=== PATIENT | male | born 1985 | race Caucasian/White ===

== ENCOUNTER 2020-11-24 08:30 | Emergency (ER) | payer SELFPAY ==
[2020-11-24 08:44] VITALS: BP 142/75; PULSE 91; RESP 16; TEMP 37.1; O2SAT 100
--- NOTE | 2020-11-24 08:51 | ED.EAR ---
HPI - Ear Problem General Chief complaint: Ear Stated complaint: ear pain Time Seen by Provider: 11/24/20 08:45 Source: patient Mode of arrival: ambulatory Limitations: no limitations History of Present Illness HPI Narrative: Henry Skelton is a 34 yo male with a PMH of HTN, high cholesterol, multiple sinus surgeries who comes here with bilateral ear pain, for past 3 days. Rates pain as 5/10- had a nosebleed a few days ago Patient has taken blood pressure medication in the past but has not been taking it because he says that it makes him groggy; acknowledges that he has intermittent heavy alcohol use Related Data Allergies Allergy/AdvReac Type Severity Reaction Status Date / Time aspirin Allergy Unknown THINS BLOOD Verified 11/24/20 08:52 venom-honey bee Allergy Unknown Verified 11/24/20 08:52 Review of Systems Review of Systems: Narrative: CONSTITUTIONAL: Denies fever, chills, sweats. EYES: Denies visual changes, redness, discharge. ENT: Denies rhinorrhea, congestion, has sore throat, has bilateral otalgia. CARDIOVASCULAR: Denies chest pain, palpitations, edema. RESPIRATORY: Denies dyspnea, wheezing, cough GASTROINTESTINAL: Denies abdominal pain, nausea, vomiting, diarrhea. GENITOURINARY: Denies dysuria, hematuria, abnormal discharge SKIN: Denies rash or itching. NEUROLOGIC: Denies numbness, or focal weakness. PSYCHIATRIC: Denies anxiety or depression. [facility] Past Medical History Medical History Frequent nosebleeds Surgical History Surgical History (Updated 11/24/20 @ 08:59 by Yuliya La CNP) Status post balloon atrial septotomy Family History Family History Other Heart disease High cholesterol Hypertension Social History Social History (Updated 11/24/20 @ 09:00 by Yuliya La CNP) Smoking packs per day: 1 Smoking cigarettes per day: 20.0 Smoking status: Current every day smoker Tobacco type: cigarettes Alcohol intake: current Alcohol use details: Fluctuating amounts of alcohol depending on circumstances Gender identity (if verbalized by the patient): Male Comments At time of signature, I agree with nursing past medical, surgical, social and family history. There is no relevant family history pertinent to the presenting complaint. Exam Narrative: Exam Narrative: GENERAL: This is a well-nourished, well-developed patient, in moderate distress. Patient is sweating profusely HEAD: normocephalic, atraumatic. EYES: Sclera clear/white. Vision is grossly intact. EARS: External ears normal, auditory canals erythema and without drainage, TMs normal without perforation. Hearing grossly intact. Feels like has pressure behind eardrums NOSE: External nose normal without nasal discharge, nares without redness, no rhinorrhea. THROAT: Mucous membranes moist, posterior pharynx erythema NECK: Neck supple, non-tender CARDIOVASCULAR: Regular rate and rhythm without murmurs, gallops, or rubs. RESPIRATORY: Clear to auscultation. Breath sounds equal bilaterally. No wheezes, rales, or rhonchi. GASTROINTESTINAL: Abdomen soft, SKIN: warm, intact with no suspicious lesions or rash, good texture and turgor. NEURO: awake, alert, and oriented to person, place and time. There were no obvious focal neurologic abnormalities. Steady gait EXTREMITIES: Normal range of motion. BACK: Nontender without deformity Course Course Emergency Course: Comes to [facility] for bilateral ear pain Start amoxicillin 875 twice daily Discussed need to use Claritin or Zyrtec daily Vital Signs Vital signs: Vital Signs Temperature 98.7 F 11/24/20 08:44 Pulse Rate 91 11/24/20 08:44 Respiratory Rate 16 11/24/20 08:44 Blood Pressure 142/75 H 11/24/20 08:44 Pulse Oximetry 100 11/24/20 08:44 Temperature 98.7 F 11/24/20 08:44 Pulse Rate 91 11/24/20 08:44 Respiratory Rate 16 11/24/20
== END 2020-11-24 09:10 | disposition home or self-care (01) ==
PROVIDERS: Emergency Provider Nurse Practitioner
DX: H66.006 Acute suppurative otitis media without spontaneous rupture of ear drum, recurrent, bilateral (principal); J02.9 Acute pharyngitis, unspecified; F17.210 Nicotine dependence, cigarettes, uncomplicated; E78.00 Pure hypercholesterolemia, unspecified; I10 Essential (primary) hypertension
CPT/HCPCS: 99213; G0463

== ENCOUNTER 2021-11-28 21:55 | Emergency (ER) | payer SELFPAY ==
--- NOTE | ~2021-11-28 | XR_ITS ---
EXAM: XR wrist LT min 3V DATE: 11/28/2021 22:25 HISTORY: laceration to left wrist with possible fb . COMPARISON: None available. FINDINGS: Normal mineralization. No fracture or dislocation. No lytic or blastic lesion. Joint space s are maintained. No erosion or periosteal change. Distal forearm/wrist soft tissue swelling. Punctat e foreign body projecting in the superficial lateral soft tissues of the distal forearm/wrist approxi mately 3 cm proximal to the ulnar styloid. IMPRESSION: No acute osseous finding in the left wrist. Punctate foreign body projects in the superfi cial soft tissues of the medial wrist. Reviewed, dictated and finalized at location K. IMPRESSION: No acute osseous finding in the left wrist. Punctate foreign body p rojects in the superficial soft tissues of the medial wrist.
[2021-11-28 22:03] VITALS: BP 149/86; PULSE 86; RESP 20; TEMP 37.2; O2SAT 100
--- NOTE | 2021-11-28 23:40 | ED.WOUNDLAC ---
HPI - Wound/Laceration General Chief Complaint: Wound/Laceration Stated Complaint: laceration to left arm Time Seen by Provider: 11/28/21 23:28 History of Present Illness HPI narrative: 35-year-old male presents the emergency room for evaluation of multiple lacerations to his left wrist. Patient states earlier today he was using a circular saw when he lost control of for a second and the blade cut his left wrist. Patient states his tetanus is not up-to-date. Patient denies any problems moving his wrist or his fingers. Patient denies any numbness or tingling distal to the injury. Related Data Allergies Allergy/AdvReac Type Severity Reaction Status Date / Time venom-honey bee Allergy Unknown Unknown Verified 11/28/21 22:13 Review of Systems Review of Systems: CONSTITUTIONAL: Denies fever, chills, or sweats. EYES: Denies visual changes, redness, or discharge. ENT: Denies rhinorrhea, congestion, sore throat, or otalgia. CARDIOVASCULAR: Denies chest pain, palpitations, or edema. RESPIRATORY: Denies cough or dyspnea. GASTROINTESTINAL: Denies abdominal pain, nausea, vomiting, or diarrhea. GENITOURINARY: Denies dysuria or hematuria. SKIN: Multiple left wrist lacerations MUSCULOSKELETAL: Denies back pain, joint pain, or myalgia. NEUROLOGIC: Denies headache, numbness, dizziness, or weakness. PSYCHIATRIC: Denies anxiety or depression. [facility] Past Medical History Medical History Frequent nosebleeds Surgical History Surgical History Status post balloon atrial septotomy Family History Family History Other Heart disease High cholesterol Hypertension Social History Social History Smoking packs per day: 1 Smoking cigarettes per day: 20.0 Smoking status: Current every day smoker Tobacco type: cigarettes Alcohol intake: current Alcohol use details: Fluctuating amounts of alcohol depending on circumstances Gender identity (if verbalized by the patient): Male Exam Narrative: GENERAL: Well-appearing, well-nourished, no physical limitations, and in no acute distress. HEAD: Normocephalic, atraumatic. EYES: Conjunctivae normal, PERRLA and EOMI. CHEST: Clear to auscultation. No respiratory distress. No wheezes rales or rhonchi. No tenderness. HEART: Regular rate and rhythm. No murmur heard. Normal peripheral pulses. BACK: No CVA tenderness; No cervical/thoracic/lumbar tenderness, step-offs, bony abnormality; FROM EXTREMITIES: Left wrist: Range of motion that he noted SKIN: X2 linear lacerations to the medial surface of the left wrist NEURO: No focal deficits. Alert and oriented x3. MAEW. CN's II-XI intact bilaterally, normal gait PSYCH: Cooperative. Normal mood and affect. Course Vital Signs Vital signs: Vital Signs Temperature 37.2 C 11/28/21 22:03 Pulse Rate 86 11/28/21 22:03 Respiratory Rate 20 11/28/21 22:03 Blood Pressure 149/86 H 11/28/21 22:03 Pulse Oximetry 100 11/28/21 22:03 Oxygen Delivery Room Air 11/28/21 22:03 Temperature 37.2 C 11/28/21 22:03 Pulse Rate 74 11/29/21 00:32 Respiratory Rate 18 11/29/21 00:32 Blood Pressure 162/84 H 11/28/21 23:44 Pulse Oximetry 100 11/29/21 00:32 Oxygen Delivery Room Air 11/28/21 23:44 Procedures Laceration Laceration 1: Date: 11/29/21 Time: 00:08 Site: upper extremity Side (If applicable): left Size (cm): 2 Description: linear Depth: simple, single layer Local Anesthetic: lidocaine 1% and with epi Amount of anesthesia used (mL): 3 Pre-repair: irrigated extensively ====== Skin Level ====== Skin layer closed with: nylon Size (cm): 4-0 Number of sutures: 4 Technique: simple, interrupted ====== Subc
[2021-11-28 23:44] VITALS: BP 162/84; PULSE 81; RESP 18; O2SAT 99
[2021-11-29] MEDS: LIDO 1%/EPINEPHRINE 1:100,000 10 ML VIAL 20 ML (00:05)
[2021-11-29] MEDS: TETANUS,DIPHTHERIA,AC PERTUSSIS ADULT (0.5 ML) BOOSTRIX IM (00:16)
[2021-11-29 00:32] VITALS: PULSE 74; RESP 18; O2SAT 100
== END 2021-11-29 00:32 | disposition home or self-care (01) ==
PROVIDERS: Emergency Provider Nurse Practitioner Family
DX: S61.512A Laceration without foreign body of left wrist, initial encounter (principal); W27.0XXA Contact with workbench tool, initial encounter
CPT/HCPCS: 12002; 73110; 90471; 90715; 99283

== ENCOUNTER 2022-07-19 17:08 | Emergency (ER) | payer BC, SELFPAY ==
--- NOTE | ~2022-07-19 | XR_ITS ---
EXAM: XR abdomen/kub 1V DATE: 07/19/2022 18:35 HISTORY: hematuria left flank pain . COMPARISON: None available. FINDINGS: Clear lung bases. Normal bowel gas pattern. No organomegaly. Pelvic phleboliths. Mild mult ilevel degenerative disc disease in the lumbar spine. IMPRESSION: No radiographic evidence of nephrolithiasis. Reviewed, dictated and finalized at location K. E I ASSISTANT
[2022-07-19 17:27] VITALS: BP 132/89; PULSE 89; RESP 16; TEMP 36.7; O2SAT 99
--- NOTE | 2022-07-19 17:57 | ED.MALEGU ---
HPI - Male Genitourinary General Chief complaint: Urogenital-Male Stated complaint: Male Problems Time Seen by Provider: 07/19/22 17:57 Source: patient Mode of arrival: ambulatory Limitations: no limitations History of Present Illness HPI Narrative: 36-year-old male presents with complaint of sudden right-sided flank pain that radiated into abdomen then into his right groin and right testicle. He states pain was a 10/10. Reports that he was on the floor playing with his child would happen. States he had never experienced anything like that before. His pain is now 3/10. States that he has a pinkish tinge to his urine. No history of kidney stones. Ambulatory with steady gait. Denies nausea vomiting diarrhea. No fever chills. No dysuria, frequency or urgency. Patient states that he drinks a lot of soda, and carried or milk. Does not drink a lot a water. He reports that he had a GI bug 3 4 days ago with although symptoms have resolved. All systems reviewed and negative except as noted above. Related Data Allergies Allergy/AdvReac Type Severity Reaction Status Date / Time venom-honey bee Allergy Unknown Unknown Verified 07/19/22 17:12 Review of Systems Review of Systems: CONSTITUTIONAL: Denies fever, chills, or sweats. EYES: Denies visual changes, redness, or discharge. ENT: Denies rhinorrhea, congestion, sore throat, or otalgia. CARDIOVASCULAR: Denies chest pain, palpitations, or edema. RESPIRATORY: Denies cough or dyspnea. GASTROINTESTINAL: Denies abdominal pain, nausea, vomiting, or diarrhea. GENITOURINARY: Reports right flank pain radiating to right groin, testicle. SKIN: Denies rash or itching. MUSCULOSKELETAL: Denies back pain, joint pain, or myalgia. NEUROLOGIC: Denies headache, numbness, or weakness. PSYCHIATRIC: Denies anxiety or depression. All other systems reviewed are negative, except as documented in HPI. [facility] Past Medical History Medical History Frequent nosebleeds Surgical History Surgical History Status post balloon atrial septotomy Family History Family History Other Heart disease High cholesterol Hypertension Social History Social History Smoking packs per day: 1 Smoking cigarettes per day: 20.0 Smoking status: Current every day smoker Tobacco type: cigarettes Alcohol intake: current Alcohol use details: Fluctuating amounts of alcohol depending on circumstances Gender identity (if verbalized by the patient): Male Comments At time of signature, agree with nursing past medical, surgical, social and family history. There is no relevant family history pertinent to the presenting complaint. Exam Narrative: GENERAL: This is a well-nourished, well-developed patient, in no apparent distress. HEAD: normocephalic, atraumatic. EYES: PERRL. Sclera clear/white. Vision is grossly intact. EARS: External ears normal NOSE: External nose normal NECK: Neck supple, non-tender without lymphadenopathy, masses or thyromegaly. CARDIOVASCULAR: Regular rate and rhythm without murmurs, gallops, or rubs. RESPIRATORY: Clear to auscultation. Breath sounds equal bilaterally. No wheezes, rales, or rhonchi. GASTROINTESTINAL: Abdomen soft, non-tender, nondistended. Bowel sounds are active. No hepato-splenomegaly, or palpable masses. No guarding. SKIN: warm, Dry, intact with no suspicious lesions or rash, good texture and turgor. NEURO: awake, alert, and oriented to person, place and time. There were no obvious focal neurologic abnormalities. EXTREMITIES: No joint tenderness, effusion, or edema noted. BACK: No CVA tenderness. Course Course Level of Care: Express Care Visit Vital Signs Vital signs: Vital Signs Temperature 36.7 C 07/19/22 17:27 Pulse Rate 89
[2022-07-19] MEDS: KETOROLAC (*BKC) 60 MG/2 ML VIAL IM (18:21)
== END 2022-07-19 18:58 | disposition home or self-care (01) ==
PROVIDERS: Emergency Provider Nurse Practitioner Family
DX: N20.0 Calculus of kidney (principal); F17.210 Nicotine dependence, cigarettes, uncomplicated
CPT/HCPCS: 74018; 81003; 96372; 99213; G0463; J1885

== ENCOUNTER 2023-02-15 23:50 | Emergency (ER) | payer BC, SELFPAY ==
[2023-02-16 00:12] VITALS: BP 146/91; PULSE 89; RESP 16; TEMP 37; O2SAT 100
[2023-02-16] MEDS: SULFAMETHOXAZOLE/TRIMETHOPRIM 800/160 MG DS TABLET 1 TAB PO (03:14)
--- NOTE | 2023-02-16 03:44 | PC.NURSE ---
See downtime forms for triage.
[2023-02-16 03:45] VITALS: BP 136/72; PULSE 71; RESP 16; O2SAT 98
== END 2023-02-16 03:46 | disposition home or self-care (01) ==
PROVIDERS: Emergency Provider Physician Assistant
DX: L02.415 Cutaneous abscess of right lower limb (principal); L03.115 Cellulitis of right lower limb
CPT/HCPCS: 10060; 87070; 87147; 87181; 87186; 87205; 99283; A9270

== ENCOUNTER 2024-08-19 15:50 | Emergency (ER) | payer BC, SELFPAY ==
[2024-08-19 16:02] VITALS: BP 146/88; PULSE 83; RESP 16; TEMP 36.6; O2SAT 97
--- NOTE | 2024-08-19 16:04 | ED_ITS ---
HPI - Skin/Abscess/Foreign Bdy General Chief complaint: Skin/Abscess/Foreign Body Stated complaint: boil on back Focused HPI: This is a 38-year-old male who presents to the ED for chief complaint of ?boil? into the back over the past week. Patient states that it has been increasing in redness, swelling. States the area is quite painful. Reports it is in the middle of his back. Denies any further rash. Denies fevers, chills, nausea, vomiting. Endorses history of abscess on the leg in the past which had to be drained twice. GENERAL: Well-appearing, well-nourished, and in no acute distress. HEAD: Normocephalic, atraumatic. CHEST: Clear to auscultation. No respiratory distress. HEART: Regular rate and rhythm. NEURO: Alert and oriented x3. Patient screened in triage and initial orders placed. Additional care and disposition to be based upon diagnostic testing and treatment. Source: patient Mode of arrival: ambulatory Limitations: no limitations Related Data Allergies Allergy/AdvReac Type Severity Reaction Status Date / Time venom-honey bee Allergy Unknown Unknown Verified 08/19/24 15:51 COUNTS INCLUDE 234 BEDS AT THE [facility] Past Medical History Medical History Frequent nosebleeds Surgical History Surgical History Status post balloon atrial septotomy Family History Family History Other Heart disease High cholesterol Hypertension Social History Social History Smoking packs per day: 1 Smoking cigarettes per day: 20.0 Smoking status: Current every day smoker Tobacco type: cigarettes Alcohol intake: current Alcohol use details: Fluctuating amounts of alcohol depending on circumstances Gender identity (if verbalized by the patient): Male Course Vital Signs Vital signs: Vital Signs Temperature 97.8 F 08/19/24 16:02 Pulse Rate 83 08/19/24 16:02 Respiratory Rate 16 08/19/24 16:02 Blood Pressure 146/88 H 08/19/24 16:02 Pulse Oximetry 97 08/19/24 16:02 Temperature 97.8 F 08/19/24 16:02 Pulse Rate 83 08/19/24 16:02 Respiratory Rate 16 08/19/24 16:02 Blood Pressure 146/88 H 08/19/24 16:02 Pulse Oximetry 97 08/19/24 16:02 Discharge Plan Discharge Patient Language: [place] Prescriptions: No Action tamsulosin [Flomax] 0.4 mg capsule 0.4 mg PO DAILY Qty: 30 0RF ciprofloxacin HCl 500 mg tablet 500 mg PO BID 10 Days Qty: 20 0RF Rx Instructions: administer within 120 minutes prior to surgical incision indomethacin 50 mg capsule 50 mg PO TID Qty: 30 0RF Rx Instructions: administer with food Follow-up/Referrals: PHYSICIAN,FILLER SHAKER [Primary Care Provider] -
--- OUTSIDE RECORDS SUMMARY | 2024-08-19 17:44 | XMS_ITS | Data Portability ---
Author Organization [place] - [facility], Main Office Address [address] [place] [address] Care Team Providers Care Supervisor [employer] Name Role Phone DISHA DOSHI Primary Care Provider DISHA DOSHI Referring Provider Assessment Encounter Date Assessment Date Assessment LastModified by Organization Details LastModified Time 02/21/2023 02/21/2023 HPI: 37-year-old male who came in today for evaluation his right shoulder pain. He has history of dislocations of the shoulder. First time he dislocated it was about 10 years ago from a fall. He has had multiple dislocations since that time. Last dislocation was about a year ago. Patient has learned how to reduce the shoulder when this happens. Patient complains of pain in the right shoulder with the use and motion. He is not describing any catching or locking type sensations in the shoulder. He has pain when he tries to use the arm especially with overhead activities or activities with the arm outstretched. Patient works in [employer] at this point. He is using a mower and weed eater on a daily basis. He has a lot of pain by the end the day. He has tried vfjv-lpc-uxjkwib anti-inflammator ies when he is having significant pain but does not feel they are helping. He does not take them prior to the onset of his symptoms. Most patients pain is over the lateral deltoid. He has no numbness tingling the arm. Physical exam: 37-year-old male alert pleasant. He has active elevation to 140 external rotation is to 45 internal rotation is to his right buttocks. He has a negative abdominal compression test. He has good strength with external rotation as well as abduction. There is no pain with strength testing. Minimal pain with range of motion of the shoulder itself. 2+ radial pulse. There is no effusion noted in the shoulder. No crepitus with range of motion. Impression: 37-year-old male who has moderately severe glenohumeral joint osteoarthritis. Noted suspect most likely this is posttraumatic from his dislocations. He does have 2 small ossicles that appear to be intra-articular but he is having no episodes of locking or catching in the shoulder. So I do not think that they are most likely loose but most likely scarred in. I talked with him about these loose bodies. If he does have symptoms very feels that the shoulder is completely catching and does not move that these can be removed. Long-term prognosis of this is problematic. He is very young to have such severe arthritis in his shoulder. He has not had a surgical candidate for shoulder replacement. He is also a smoker and smokes pack a day which would also make him not a surgical candidate at this point. He is also dealing with an infection in his right upper thigh of soft tissue. He has been on antibiotics going to be calling his primary care doctor for continued care of this. Did go to the emergency room recently because of this. Because of the active infection I would not recommend cortisone injection in the shoulder but if he does have the infection cleared completely I think it could be reasonable to give him an intra-articular cortisone injection in the shoulder and we talked about this in depth as well. I recommend he started using tooz-zdh-oviwvni naproxen to start. Two in the morning and 2 at night and see if this helps improve his symptoms. He needs to completely modify his activities. I recommend he get away from the job he is that and find something more sedentary as this is going to help with his symptoms as well. I recommend he quit smoking completely at this point as well. I did give him our card and if he does have the infection completely cleared he will call we can several a image guided injection in the shoulder if he wishes to do that. Otherwise we will see him back as needed. 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 He has not had a dislocation for the last 3 years or more probably because of the stiffness and reduced range of motion that he has as result of the posttraumatic arthritis. His not taking any arthritis medications currently. He realizes that he could certainly take Advil and Aleve and does take these when he is having pain on as needed basis. He is hoping that there may be a surgical correction that could be offered. Managing his glenohumeral joint arthritis surgically would be out of my area of expertise. It is possible that he may have some symptomatic relief with removal of loose bodies and debridement. I would recommend that he see a shoulder arthroscopy subspecialist for opinion as to whether not that might be helpful. He is very young at 37 to have this degree of arthritis severity. I stressed with him that it is imperative that he stop smoking completely is I suspect he would not be offered surgery unless he does so. I am happy to see him back as-needed basis. 40 minutes were spent in total care this patient and with more than half the time spent in ximd-tb-[id number] care. explaining his condition and reviewing the MRI scan with him [email or web address] Not available 05/20/2023 09:49:08 Plan of Treatment Reminders Order Date Submit Date Provider Last Modified By Organization Details Last Modified Time Details Appointments None recorded. Lab None recorded. Referral orthopedic surgeon referral - pt needs to see a orthopedic shoulder specialist ie: Dr. Saunders/Sussy hopkins etc 2022 023 [facility], [facility], [address] [facility], [place], [address], 14:00:36 Procedures None recorded. Surgeries None recorded. Imaging XR, shoulder 2022 023 [email or web address] [facility] [place], [address], [place], [address], 10:23:05 Medication Orders None recorded. Patient TargetsNo targets recorded. Patient InstructionsNo instructions recorded. Reason for Referral Orthopedic Surgeon Referral for Pain of right shoulder joint post traumatic osteoarthritis right shoulder with multiple loose bodies pt needs to see a orthopedic shoulder specialist ie: Dr. Saunders/Avery etc Referring Physician: Roland Lopez, Orthopedic Surgery, Encounter Date: 05/17/2023 Results Created Date Observation Date Name Description Value Unit Range Abnormal Flag Note LastModifiedBy Organization Detail LastModifiedTime 02/22/20 XR, shoul guido No observ ation record ed. [email or web address] [facility] [place] [address], [place], [address], 02/21/2023 10:02:02 04/18/2003/30/2023 MRI, shoul guido, w/o contr ast No observ ation record ed. [email or web address] Not Available 04/04 14:39:59 04/18/2001/30/2023 XR, shoul guido No observ ation record ed. [email or web address] Not Available 04/04 14:40:00 Result Notes None recorded. Problems Name Problem SNOMED Code Status Onset Date Resolution Date Notes Provider Name and Address Organization Details Recorded Time Pain of left shoulder joint 749270279868011 09 Active 2022 CHEYANNE Park null, [place] [employer] [facility] [employer] 3 08:47:41 Pain of right shoulder joint 964922646852427 00 Active 2022 RYLAN Juan [address] [place] [address] [address], [place], [address] , [employer] 3 10:00:16 Problem Notes None recorded. Procedures Surgical History None recorded. Imaging Results Imaging Date Name Status LastModified by [facility] Details LastModified Time 02/21/2023 XR, shoulder completed [email or web address] [facility] [place] [address], [place], [address], 02/21/2023 10:02:02 03/30/2023 MRI, shoulder, w/o contrast completed Information not available 04/18/2023 14:39:59 01/30/2023 XR, shoulder completed Information not available 04/18/2023 14:40:00 Procedure Notes None recorded. Medical Equipment None Reported. Allergies No known drug allergies Medications Name Sig Start Date Stop Date Status Note LastModified by Organization Details LastModified Time ciprofloxac in 500 mg tablet TAKE 1 TABLET BY MOUTH TWICE DAILY FOR 10 DAYS. ADMINISTE R 120 MINUTES PRIOR TO SURGICAL INCISION 02/21 completed Not Available Not Available Not Available sulfamethox azole 800 mg-trimetho prim 160 mg tablet TAKE 1 TABLET BY MOUTH EVERY 12 HOURS FOR 7 DAYS 05/17 completed Not Available Not Available Not Available triamcinolo ne acetonide 0.1 % topical cream APPLY A THIN LAYER OF CREAM EXTERNALL Y TO AFFECTED AREA TWICE DAILY 05/17 completed Not Available Not Available Not Available tamsulosin 0.4 mg capsule TAKE 1 CAPSULE BY MOUTH ONCE DAILY 02/21 completed Not Available Not Available Not Available nystatin 100,000 unit/gram topical cream APPLY CREAM TOPICALLY TO AFFECTED AREA TWICE DAILY 05/17 completed Not Available Not Available Not Available indomethaci n 50 mg capsule TAKE 1 CAPSULE BY MOUTH THREE TIMES DAILY WITH FOOD 02/21 completed Not Available Not Available Not Available Vitals Date Recorded Body height Body mass index (BMI) Body weight Provider Name and Address Organization Details Last Updated DateTime 02/21/2023 182.88 cm 36.6 kg/m2 325001.94 g CHEYANNE Park [employer] 02/21/2023 09:16:39 Date Recorded Body height Provider Name an d Address Organization Details Last Updated DateTime 05/17/2023 182.88 cm CHEYANNE Park [employer] 05/17/2023 14:56:20 Social History Question Answer Notes LastModified by Organizat ion Details LastModified Time Tobacco Smoking Status Current Every Day Smoker CHEYANNE Park null, [employer] 02/21/2023 09:13:57 What Is Your Level Of Alcohol Consumption? Moderate Information not available 02/21/2023 Sex: Unknown Functional Status None recorded. Mental Status None recorded. Family History Relationship Description Onset Age of this Age Resolved Age Notes LastModified by Organization Details LastModified Time Maternal Grandfather Heart disease [email or web address] Not available 2022 09:12:59 Maternal Uncle Heart disease [email or web address] Not available 2022 09:12:59 Maternal Grandmother Family history of malignant neoplasm [email or web address] Not available 2022 09:13:16 Unspecified Relation Diabetes mellitus cousin s [email or web address] Not available 02/21/2023 09:13:42 Medical History Condition Response SKIN PROBLEMS Y URINARY/BLADDER/KIDNEY PROBLEMS Y Blood Disorder Y Past Encounters Encounter ID Performer Location Encounter Start Date Encounter Closed Date Diagnosis/Indication Diagnosis SNOMED-CT Code Diagnosis ICD10 Code Diagnosis Note [id number] RYLAN Juan [facility] [address] [place] [address] 02/21/2023 08:41:28 02/21/2023 10:23:05 Pain of right shoulder joint [id number] M25.063 [id number] Roland Lopez MD [facility] [address] [place] [address] 05/17/2023 14:42:15 05/21/2023 11:03:01 Pain of right shoulder joint [id number] M25.511 M19.011 Health Concerns Section Related Observation LastModified by Organization Detai ls LastModified Time None Recorded Concern Status LastModified by Organization Details LastModified Time None Recorded Advance Directives Directive None Recorded Payers Encounter Date Sequence Insurance Name Policy Number Policy Holm Covered Member ID Holm Member ID Guarantor Name 02/21/2023 1 [place] [id number] Scarlett Skelton [id number] Henry Skelton 05/17/2023 1 [place] [id number] Scarlett Skelton [id number] Henry Skelton Notes Date Note Type Note Provider Name and Address Organization Details Recorded Time 05/17/2023 text/html patient returns. Was seen by us on 02/21/2023. Was noted to have rather severe osteoarthritis in the glenohumeral joint of the right shoulder at that time. On the 40 degree posterior oblique view he had narrowing of the glenohumeral joint space to 2 mm. Oval ossified loose bodies were also noted in the Subcoracoid recess and also in the bicipital groove. he was dealing with an infection in his thigh at that time. He was advised that he must stop smoking. Is not stop smoking at and I reiterated the importance of his doing this. He has been under lot of stress. His mother just yesterday in fact. He 1st dislocated his right shoulder severely during a fall age 26 and he estimates that he has dislocated at approximately 100 times or more since. He went to the emergency room with the 1st 2 dislocations any figure out how to relocated himself . His last dislocation was more than 3 years ago. 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 Dr. Doshi ordered MRI scan which was performed on 03/23. I reviewed the images. There were at least moderate arthritic changes with areas of full-thickness or near full-thickness chondral loss the glenohumeral joint noted. Multiple loose bodies were seen. Two large loose bodies subcoracoid the rotator cuff interval region and 2 of them seen in the biceps tendon sheath distal to the bicipital groove which were large. There is mild tendinosis of the rotator cuff with minimal interstitial tear at the supraspinatus tendon insertion. Axial image 3-9 shows defect that would be consistent with a Hill-Sachs defect in the posterolateral humeral head also suggested on coronal image 5-7. Defect appears to be filled in with scar tissue. I reviewed the findings with the patient. I asked about numbness or tingling he admits that he has had on occasion spells of tingling from the shoulder to his fingers that last about 2 seconds and the seem to occur when he lets his arm swing freely walking quickly. Roland Lopez MD [address] [place] [address], [facility] [address], [place], [address], [place] [facility] 05/20/2023 09:49:19
--- NOTE | 2024-08-19 19:25 | PC.NURSE ---
No answer for repeat VS.
--- NOTE | 2024-08-19 20:24 | PC.NURSE ---
No answer to calls, not in WR or outside
== END 2024-08-19 19:25 | disposition left against medical advice (07) ==
PROVIDERS: Emergency Provider Physician Assistant
DX: L02.212 Cutaneous abscess of back [any part, except buttock and flank] (principal); F17.210 Nicotine dependence, cigarettes, uncomplicated
CPT/HCPCS: 99199; 99281

== ENCOUNTER 2024-08-20 08:51 | Emergency (ER) | payer BC, SELFPAY ==
[2024-08-20 09:06] VITALS: BP 145/84; PULSE 72; RESP 20; TEMP 36.8; O2SAT 98
--- NOTE | 2024-08-20 09:44 | ED.SKABFB ---
HPI - Skin/Abscess/Foreign Bdy General Chief complaint: Skin/Abscess/Foreign Body Stated complaint: Bump On Back Time Seen by Provider: 08/20/24 09:36 Source: patient, RN notes reviewed and old records reviewed Mode of arrival: ambulatory Limitations: no limitations History of Present Illness HPI narrative: Patient presents today with a bump on his right mid back x1 week. Has applied warm compresses and Prid Salve without improvement. History of abscess to the left upper leg last year that required I&D. Denies hx of MRSA. Related Data Allergies Allergy/AdvReac Type Severity Reaction Status Date / Time venom-honey bee Allergy Unknown Unknown Verified 08/20/24 08:58 Review of Systems Review of Systems: CONSTITUTIONAL: Denies body aches, fever, chills, or sweats. EYES: Denies visual changes, redness, or discharge. ENT: Denies rhinorrhea, congestion, sore throat, or otalgia. CARDIOVASCULAR: Denies chest pain, palpitations, or edema. RESPIRATORY: Denies cough or dyspnea. GASTROINTESTINAL: Denies abdominal pain, nausea, vomiting, or diarrhea. GENITOURINARY: Denies dysuria or hematuria. SKIN: + bump to back MUSCULOSKELETAL: Denies back pain, joint pain, or myalgia. NEUROLOGIC: Denies headache, numbness, tingling, or weakness. PSYCH: Denies depression or anxiety. [facility] Past Medical History Medical History Frequent nosebleeds Surgical History Surgical History Status post balloon atrial septotomy Family History Family History Other Heart disease High cholesterol Hypertension Social History Social History Smoking packs per day: 1 Smoking cigarettes per day: 20.0 Smoking status: Current every day smoker Tobacco type: cigarettes Alcohol intake: current Alcohol use details: Fluctuating amounts of alcohol depending on circumstances Gender identity (if verbalized by the patient): Male Comments At time of signature, I have reviewed and agree with nursing past medical, surgical, social and family history unless otherwise noted. Please see nursing chart for further information. There is no relevant family history pertinent to the presenting complaint Exam Narrative: GENERAL: Well-appearing, well-nourished, and in no acute distress. HEAD: Normocephalic, atraumatic. EYES: EOMI. No redness or drainage. Conjunctivae normal. ENT: Mucous membranes pink and moist. NECK: Normal AROM. CHEST: No respiratory distress. EXTREMITIES: Normal range of motion. No edema. SKIN: Warm, dry, no rash. Capillary refill normal. Normal skin turgor. 2.5x3cm erythematous and hypopigmented, fluctuant and tender lesion to the right midback. NEURO: No focal deficits. Alert and oriented x3. Gait steady. PSYCH: Normal affect. No signs of depression or anxiety. Course Course Level of Care: Express Care Visit Vital Signs Vital signs: Vital Signs Temperature 98.2 F 08/20/24 09:06 Pulse Rate 72 08/20/24 09:06 Respiratory Rate 20 08/20/24 09:06 Blood Pressure 145/84 H 08/20/24 09:06 Pulse Oximetry 98 08/20/24 09:06 Oxygen Delivery Room Air 08/20/24 09:06 Temperature 98.2 F 08/20/24 09:06 Pulse Rate 72 08/20/24 09:06 Respiratory Rate 20 08/20/24 09:06 Blood Pressure 145/84 H 08/20/24 09:06 Pulse Oximetry 98 08/20/24 09:06 Oxygen Delivery Room Air 08/20/24 09:06 Reviewed Procedures Abscess I/D back: Date of Incision: 08/20/24 Time of Incision: 10:05 Side (if applicable): right Local Anesthetic: lidocaine 1% and with epi Amount of anesthesia used (mL): 3 Technique: incised with #11 blade Amount of fluid expressed (mL): 3 Irrigation: Yes Packing used?: iodoform I&D Results: Pus and Blood Complications: pain and bleeding MDM - Skin/Abscess/Foreign Bdy MDM Narrative Medical decision making narrative: Abscess has been lanced and drained. Packing applied. Instructions provided to patient. Prescription for Bactrim sent to pharmacy. Anticipatory guidance given. Differential Diagnosis Differential diagnosis: Likely abscess of skin or subcutaneous tissue, cellulitis and other (Cyst) Critical Care Time Critical Care Time Critical Care Time: No Discharge Plan Discharge Clinical Impression: Abscess of back Patient Disposition: Home, Self-Care Condition: Stable Instructions: Antibiotic Form, Abscess (ED), Abscess Incision and Drainage (DC) Additional Instructions: Your abscess has been lanced and drained. It has been packed with some gauze and alert Band-Aid applied. Please keep the Band-Aid on for 48 hours if able. After this time, please remove the Band-Aid and packing, wash with soap and water, and reapply a Band-Aid. After 48 hours, wash daily and keep covered until scabbed over. Take the antibiotics as prescribed until gone. If symptoms are not improving, please follow-up with your PCP. Your blood pressure was elevated above 120/80 today at Urgent Care. This puts you above the threshold for follow up. Please schedule a followup visit with your personal physician as soon as possible, for further evaluation and treatment. Even blood pressure exceeding 120/80 may indicate pre-hypertension. Patient Language: Scottish Prescriptions: New sulfamethoxazole-trimethoprim [Bactrim DS] 800-160 mg tablet 1 tablet PO Q12H 10 Days Qty: 20 0RF Follow-up/Referrals: PHYSICIAN,SAMPLE EXAMINER [Primary Care Provider] - Time of Disposition: 10:09
== END 2024-08-20 10:15 | disposition home or self-care (01) ==
PROVIDERS: Emergency Provider Nurse Practitioner
DX: L02.212 Cutaneous abscess of back [any part, except buttock and flank] (principal); F17.210 Nicotine dependence, cigarettes, uncomplicated
CPT/HCPCS: 10061; 99213; G0463; J2004

== ENCOUNTER 2024-09-04 15:45 | Emergency (ER) | payer BC, SELFPAY ==
--- NOTE | 2024-09-04 15:47 | ED.SKABFB ---
HPI - Skin/Abscess/Foreign Bdy General Chief complaint: Skin/Abscess/Foreign Body Stated complaint: Bump On Back Time Seen by Provider: 09/04/24 15:47 Source: patient Mode of arrival: ambulatory Limitations: no limitations History of Present Illness HPI narrative: patient is a 38-year-old male who presents with abscess on back. Patient had same abscess on I&D here on 08/20. Patient was on bactrim. Patient went to the ED on 08/26 and left without being seen. Patient has not followed up due to not having a PCP. Related Data Allergies Allergy/AdvReac Type Severity Reaction Status Date / Time clindamycin Allergy Intermediate Hives Verified 09/04/24 16:10 venom-honey bee Allergy Unknown Unknown Verified 09/04/24 15:47 Review of Systems Review of Systems: All systems reviewed & are unremarkable except as noted in HPI and below Constitutional: Constitutional: Denies body ache(s), Denies chills, Denies fatigue, Denies fever(s), Denies headache(s), Denies malaise and Denies weakness Eyes: Eyes: Denies blurry vision, Denies irritation and Denies loss of vision ENT: Denies otalgia, Denies headache(s), Denies nasal discharge, Denies sinus pain and Denies sore throat Cardiovascular: Cardiovascular: Denies chest pain, Denies irregular heart rhythm and Denies dyspnea Respiratory: Respiratory: Denies dyspnea Gastrointestinal: Gastrointestinal: Denies abdominal pain, Denies melena, Denies hematochezia, Denies diarrhea, Denies nausea and Denies vomiting Musculoskeletal: Musculoskeletal: Denies back pain, Denies myalgias and Denies arthralgias Integumentary/Breasts: Skin/Breast: Denies pruritus and Denies rash Neurologic: Denies headache(s), Denies loss of vision and Denies weakness Psychiatric: Psychiatric: Reports no additional psychiatric complaints Endocrine: Endocrine: Denies fatigue PMFSH Past Medical History Medical History Frequent nosebleeds Surgical History Surgical History Status post balloon atrial septotomy Family History Family History Other Heart disease High cholesterol Hypertension Social History Social History Smoking packs per day: 1 Smoking cigarettes per day: 20.0 Smoking status: Current every day smoker Tobacco type: cigarettes Alcohol intake: current Alcohol use details: Fluctuating amounts of alcohol depending on circumstances Gender identity (if verbalized by the patient): Male Comments At time of signature, agree with nursing past medical, surgical, social and family history. There is no relevant family history pertinent to the presenting complaint. Exam Const: General: cooperative, healthy appearing, comfortable, no acute distress and well nourished Nutritional Appearance: well nourished Orientation/consciousness: patient oriented x3 Limitations: no limitations HENMT: Head: normal to inspection, normocephalic and atraumatic Ears: hearing grossly normal bilaterally and external ears normal Face/Nose/Sinus: Normal external nose present, normal facial exam and face symmetric Face and sinus: normal facial exam and face symmetric Mouth: Yes lip normal Eyes: General: appearance normal, both eyes and all related structures Alignment and Position: alignment normal and position normal Periorbital: periorbital findings normal Eyelids: eyelids normal Pupils: Equal, round and reactive pupils present EOM: EOMs intact bilaterally Neck: Neck: normal visual inspection, full ROM and supple Chest: Chest palpation & inspection: normal inspection of the chest Resp: Effort & Inspection: normal respiratory effort and able to speak in complete sentences Auscultation: clear to auscultation bilaterally Cardio: Rate: regular rate Rhythm: regular rhythm Heart sounds: S1 normal heart sound present and S2 normal heart sound present GI: Inspection: normal to inspection Skin: General skin exam: normal color and no rashes or lesions noted Full body images:  1. 2.5x3 cm area of erythema and fluctuance with mild induration surrounding. healing incision sight at center. 0.25 cm open area in middle of previous incision site. Neuro: General: patient oriented x3 and moves all extremities Cranial nerves: Yes Equal, round and reactive pupils present Speech: normal speech Gait exam (Neuro): Normal gait present Extrem: General: normal to inspection, full ROM and no edema Psych: Appearance: grossly normal and well kempt Mental Status: mental status grossly normal Speech and movement: Normal speech and movement present Affect: normal affect Attitude: cooperative Thought process: Normal thought process present Course Course Emergency Course: Patient is aware of diagnosis, understands and agrees to treatment plan. Anticipatory guidance given. Patient agrees to follow-up as directed and is aware of reasons to seek care at the emergency department. Portions of this record may have been created with voice recognition software Level of Care: Express Care Visit Vital Signs Vital signs: Vital Signs Temperature 36.8 C 09/04/24 15:52 Pulse Rate 73 09/04/24 15:52 Respiratory Rate 20 09/04/24 15:52 Blood Pressure 135/85 09/04/24 15:52 Pulse Oximetry 96 09/04/24 15:52 Oxygen Delivery Room Air 09/04/24 15:52 Temperature 36.8 C 09/04/24 15:52 Pulse Rate 73 09/04/24 15:52 Respiratory Rate 20 09/04/24 15:52 Blood Pressure 135/85 09/04/24 15:52 Pulse Oximetry 96 09/04/24 15:52 Oxygen Delivery Room Air 09/04/24 15:52 Reviewed MDM - Skin/Abscess/Foreign Bdy MDM Narrative Medical decision making narrative: Patient had scab still on previous I&D area. Scab removed and small 0.25 cm area still open. Large amount of drainage expressed with moderate pressure. Some blood but primarily purulent drainage. Sent for culture. Referral for dermatology given along with antibiotics. Pt well hydrated appearing, in no respiratory distress, hemodynamically stable. Recommend supportive care. The patient is stable at time of discharge the clinical impression was discussed and the patient was given the opportunity to ask questions, which were addressed as completely as possible given the information available at present. Anticipatory guidance and return to care precautions were discussed and the importance of primary care follow-up was stressed and encouraged. The patient voiced understanding of the plan, indications to return, and the need for follow-up. Exam findings show no acute concerns or changes Patient is appropriate for outpatient treatment and follow-up. Differential Diagnosis Differential diagnosis: Likely abscess of skin or subcutaneous tissue and cellulitis Medical Records Attestation: I reviewed the patient's medical records. Discharge Plan Discharge Clinical Impression: Abscess of skin or subcutaneous tissue Qualifiers: Site of cutaneous abscess: trunk Site of cutaneous abscess of trunk: back Qualified Code(s): L02.212 - Cutaneous abscess of back [any part, except buttock] Patient Disposition: Home, Self-Care Condition: Stable Instructions: Abscess (ED) Additional Instructions: You have had an abscess drained at [facility]. You may shower - let the soapy water clean your wound, do not scrub it. Keep your wound covered to prevent transmission of infection to other people. Keep the wound covered and dry. Once a day: wash the wound with soap/water, apply bacitracin and re-cover the wound. You have been prescribed Doxycycline today.It may make your skin more sensitive to sunlight than normal. Make sure you wear sunscreen at all times when outside while on the medication. Follow up with your primary care physician or in the Emergency Department in 2-3 days for a wound check. Go to the Emergency Department immediately if you develop any of the following symptoms: Fevers, Increased redness or swelling around where your abscess was, Increased pain, or Generalized weakness or vomiting Patient Language: Monegasque Prescriptions: New doxycycline monohydrate 100 mg tablet 100 mg PO BID 10 Days Qty: 20 0RF mupirocin 2 % ointment 1 applic topical BID Qty: 15 0RF amoxicillin-pot clavulanate 875-125 mg tablet 1 tablet PO Q12H 10 Days Qty: 20 0RF Follow-up/Referrals: Vargas Nunez M.D. [Physician] - 3 Days (Dermatology. Recurrent abscess) Dima,Nicholas Gracia MD [Primary Care Provider] - 3 Days Time of Disposition: 16:13
[2024-09-04 15:52] VITALS: BP 135/85; PULSE 73; RESP 20; TEMP 36.8; O2SAT 96
== END 2024-09-04 16:20 | disposition home or self-care (01) ==
PROVIDERS: Emergency Provider Nurse Practitioner Family; PCP Specialist
DX: L02.212 Cutaneous abscess of back [any part, except buttock and flank] (principal); F17.210 Nicotine dependence, cigarettes, uncomplicated
CPT/HCPCS: 87070; 87075; 87205; 99213; G0463

== ENCOUNTER 2025-01-13 08:19 | Emergency (ER) | payer BC, SELFPAY ==
[2025-01-13 08:26] VITALS: BP 124/73; PULSE 67; RESP 16; TEMP 36.6; O2SAT 96
[2025-01-13 08:41] LABS: EDUAAPPEAR Clear; EDUABILI Negative (Negative); EDUABLOOD Negative (Negative); EDUACOLOR1 Yellow; EDUAGLUCOSE Negative (Negative); EDUAKETONE Negative (Negative); EDUALEUKO Negative (Negative); EDUANITRATE Negative (Negative); EDUAPH 5.5; EDUAPROTEIN Negative (Negative); EDUASPGRAVITY 1.025; EDUAUROBILI 0.2
--- NOTE | 2025-01-13 08:51 | ED_ITS ---
HPI - General Adult General Chief complaint: Urogenital-Male Stated complaint: lower back pain Source: patient Mode of arrival: ambulatory Limitations: no limitations History of Present Illness HPI narrative: Patient presents for evaluation of left flank pain. Symptom onset 3-4 days ago. Pain has been a constant dull ache with intermittent periods of stabbing pain. At the present time his pain is 3/10 severity but increases to 7/10 with coughing. He denies any fever, chills, nausea, vomiting or urinary symptoms. He was having some diffuse abdominal pain a few days ago. He attributes that pain to constipation. He states that pain has resolved. He has a history of kidney stones and this feels similar. He tried taking flomax for his symptoms without considerable improvement thereafter. Related Data Allergies Allergy/AdvReac Type Severity Reaction Status Date / Time clindamycin Allergy Intermediate Hives Verified 01/13/25 08:20 venom-honey bee Allergy Unknown Unknown Verified 01/13/25 08:20 Review of Systems Review of Systems: CONSTITUTIONAL: Denies fever, chills, or sweats. EYES: Denies visual changes, redness, or discharge. ENT: Denies rhinorrhea, congestion, sore throat, or otalgia. CARDIOVASCULAR: Denies chest pain, palpitations, or edema. RESPIRATORY: Denies cough or dyspnea. GASTROINTESTINAL: Denies abdominal pain, nausea, vomiting, or diarrhea. GENITOURINARY: Denies dysuria or hematuria. BACK: Reports left flank pain SKIN: Denies rash or itching. MUSCULOSKELETAL: Denies joint pain, or myalgia. NEUROLOGIC: Denies headache, numbness, dizziness, or weakness. PSYCHIATRIC: Denies anxiety or depression. [facility] Past Medical History Medical History Von Willebrand disease Frequent nosebleeds Surgical History Surgical History Status post balloon atrial septotomy Family History Family History Other Heart disease High cholesterol Hypertension Social History Social History Smoking packs per day: 1 Smoking cigarettes per day: 20.0 Smoking status: Current every day smoker Tobacco type: cigarettes Alcohol intake: current Alcohol use details: Fluctuating amounts of alcohol depending on circumstances Gender identity (if verbalized by the patient): Male Exam Narrative: GENERAL: Well-appearing, well-nourished, and in no acute distress. HEAD: Normocephalic, atraumatic. EYES: PERRLA and EOMI. ENT: Nares clear, no rhinorrhea or epistaxis. Mucous membranes moist. Oropharynx without tonsillar hypertrophy exudate or other lesions. Bilateral TMs pearly stanley nonbulging NECK: Supple. No adenopathy or masses. No carotid bruits or JVD CHEST: Clear to auscultation. No respiratory distress. No wheezes rales or rhonchi HEART: Regular rate and rhythm. No murmur heard. Normal peripheral pulses. ABDOMEN: Soft, nontender, nondistended, normal active bowel sounds. BACK: There is left sided CVA tenderness EXTREMITIES: Normal range of motion. No edema. SKIN: Warm, dry, no rash. NEURO: No focal deficits. Alert and oriented x3. PSYCH: Normal mood and affect. Course Course Emergency Course: This is a 39-year-old male who presented for evaluation of left flank pain. He has a history of kidney stones and this feels similar. Urine today without evidence of infection. I recommended he go to the ER for further evaluation. He would likely benefit from CT and labs. [facility] is his facility of choice. I contacted the ED at [facility] and spoke with Dr Calderón, who agrees to accept pt for transfer there. Pt was updated throughout his stay here and was in agreement with plan of care, including plans for transfer. Pt transferred via private vehicle. Level of Care: Express Care Visit Vital Signs Vital signs: Vital Signs Temperature 36.6 C 01/13/25 08:26 Pulse Rate 67 01/13/25 08:26 Respiratory Rate 16 01/13/25 08:26 Blood Pressure 124/73 01/13/25 08:26 Pulse Oximetry 96 01/13/25 08:26 Oxygen Delivery Room Air 01/13/25 08:26 Temperature 36.6 C 01/13/25 08:26 Pulse Rate 67 01/13/25 08:26 Respiratory Rate 16 01/13/25 08:26 Blood Pressure 124/73 01/13/25 08:26 Pulse Oximetry 96 08/12/25 08:26 Oxygen Delivery Room Air 01/13/25 08:26 Medical Decision Making Vital Signs Vital Signs: Vital Signs Temperature 36.6 C 01/13/25 08:26 Pulse Rate 67 01/13/25 08:26 Respiratory Rate 16 01/13/25 08:26 Blood Pressure 124/73 01/13/25 08:26 Pulse Oximetry 96 01/13/25 08:26 Oxygen Delivery Room Air 01/13/25 08:26 Temperature 36.6 C 01/13/25 08:26 Pulse Rate 67 01/13/25 08:26 Respiratory Rate 16 01/13/25 08:26 Blood Pressure 124/73 01/13/25 08:26 Pulse Oximetry 96 01/13/25 08:26 Oxygen Delivery Room Air 01/13/25 08:26 Lab Data Labs: Lab Results 01/13/25 Range/Units 08:35 POC Urine Color Yellow POC Urine Clarity Clear POC Urine pH 5.5 POC Ur Specif [place] 1.025 POC Urine Protein Negative (Negative) POC Ur Glucose (UA) Negative (Negative) POC Urine Ketones Negative (Negative) POC Urine Blood Negative (Negative) POC Urine Nitrite Negative (Negative) POC Urine Bilirubin Negative (Negative) POC Urine Urobilinogen 0.2 POC U Leukocyte Esteras Negative (Negative) Discharge Plan Discharge Clinical Impression: Left flank pain, History of kidney stones Patient Disposition: Acute Care Hospital Condition: Stable Patient Language: Azerbaijani Follow-up/Referrals: Dima,Nicholas Gracia MD [Primary Care Provider] - Time of Disposition: 08:59
== END 2025-01-13 08:45 | disposition short-term general hospital (02) ==
LOC: EXPCOLL 08:21
PROVIDERS: Emergency Provider Nurse Practitioner; PCP Specialist
DX: M54.50 Low back pain, unspecified (principal); F17.210 Nicotine dependence, cigarettes, uncomplicated
CPT/HCPCS: 81003; 99212; G0463

== ENCOUNTER 2025-01-13 08:57 | Emergency (ER) | payer BC, SELFPAY ==
--- NOTE | ~2025-01-13 | CT_ITS ---
EXAMINATION: CT abdomen pelvis wo con DATE: 01/13/2025 09:35 INDICATION: Left flank pain. History of kidney stones TECHNIQUE: Computed tomography (CT) of the abdomen and pelvis was performed without intravenous contr ast. The dose-length product was 1478.69 mGy-cm. COMPARISON: Abdominal x-ray 07/19/2022 FINDINGS: Small opacities in the lower lungs. The liver, spleen, adrenal glands, pancreas and gallbladder are unremarkable. There are a few less than 5 mm nonobstructing left renal stones. No hydronephrosis. No enlarged lymph nodes in the abdomen or pelvis. No colitis. No acute appendicitis. Bladder is unremarkable. No bladder calculi. Multilevel degenerative change in the lumbar spine. IMPRESSION: 1. There are a few less than 5 mm nonobstructing left renal stones. No hydronephrosis. Reviewed, dictated and finalized at location A. IMPRESSION: 1. There are a few less than 5 mm nonobstructing left renal stones. No hydronep hrosis.
[2025-01-13 09:07] VITALS: BP 126/76; PULSE 71; RESP 20; TEMP 36.7; O2SAT 96
[2025-01-13 09:15] VITALS: O2SAT 97
[2025-01-13 09:21] LABS: Hematocrit 46.7 % (42.0-52.0); Hemoglobin 15.9 g/dL (14.0-18.0); Immature Granulocyte Percent A 0.6 % (0-0.5); Lymphocytes Absolute Auto 2.06 K/mm3 (0.9-3.2); Mean Corpuscular HGB Conc 34.0 g/dl (32-36); Mean Corpuscular Hemoglobin 31.4 pg (26-34); Mean Corpuscular Volume 92.1 fl (80-100); Nucleated Red Blood Cells Absolute Auto 0.000 K/mm3 (0.0-0.012); Nucleated Red Blood Cells Perc 0.0 % (0.0-0.2); Platelet Count Result 329 k/mm3 (150-375); Red Blood Count 5.07 M/mm3 (4.6-6.20); White Blood Count 11.1 K/mm3 (4.5-10.0)
--- NOTE | 2025-01-13 09:21 | ED_ITS ---
HPI - Abdominal Pain General Chief Complaint: Abdominal Pain Stated Complaint: left flank pain with history of kidney stone Time Seen by Provider: 01/13/25 09:09 Source: patient Mode of arrival: ambulatory Limitations: no limitations History of Present Illness HPI narrative: This is a 39-year-old male that presents to the emergency department for left flank pain. Ongoing over the last 4 days. Reports constant dull/achy pain. Intermittently more sharp. History of kidney stones. Seen at urgent care and sent to the ER for further evaluation. Denies fevers, vomiting, dysuria, hematuria. Related Data Allergies Allergy/AdvReac Type Severity Reaction Status Date / Time clindamycin Allergy Intermediate Hives Verified 01/13/25 09:10 venom-honey bee Allergy Unknown Unknown Verified 01/13/25 09:10 Review of Systems 2 Review of Systems: All systems reviewed & are unremarkable except as noted in HPI and below PMFSH Past Medical History Medical History Von Willebrand disease Frequent nosebleeds Surgical History Surgical History Status post balloon atrial septotomy Family History Family History Other Heart disease High cholesterol Hypertension Social History Social History Smoking packs per day: 1 Smoking cigarettes per day: 20.0 Smoking status: Current every day smoker Tobacco type: cigarettes Alcohol intake: current Alcohol use details: Fluctuating amounts of alcohol depending on circumstances Gender identity (if verbalized by the patient): Male Exam 2 Narrative: GENERAL: Well-appearing, well-nourished, and in no acute distress. HEAD: Normocephalic, atraumatic. EYES: EOMI. CHEST: Clear to auscultation. No respiratory distress. No wheezes rales or rhonchi HEART: Regular rate and rhythm. No murmur heard. Normal peripheral pulses. ABDOMEN: Soft, nontender, nondistended, normal active bowel sounds. No CVA tenderness EXTREMITIES: Normal range of motion. No edema. SKIN: Warm, dry, no rash. NEURO: No focal deficits. Alert and oriented x3. PSYCH: Normal mood and affect Course Vital Signs Vital signs: Vital Signs Temperature 98.1 F 01/13/25 09:07 Pulse Rate 71 01/13/25 09:07 Respiratory Rate 20 01/13/25 09:07 Blood Pressure 126/76 01/13/25 09:07 Pulse Oximetry 96 01/13/25 09:07 Oxygen Delivery Room Air 01/13/25 09:07 Temperature 98.1 F 01/13/25 09:07 Pulse Rate 71 01/13/25 09:07 Respiratory Rate 20 01/13/25 09:07 Blood Pressure 126/76 01/13/25 09:07 Pulse Oximetry 96 01/13/25 09:07 Oxygen Delivery Room Air 01/13/25 09:07 MDM - Abdominal Pain MDM Narrative Medical decision making narrative: Patient presents to the emergency department for left flank/low back pain. Ongoing over the last 4 days. Reporting history of kidney stones. Patient is afebrile and nontoxic appearing. His vitals are stable. CBC with mild leukocytosis to 11.1. Metabolic panel without concerning findings. Urine without evidence of infection. CT abdomen and pelvis shows nonobstructing renal stones. Patient updated on his workup and agrees with plan of care. He is to follow up with primary provider. He was given warnings to return to the ER Differential Diagnosis Differential diagnosis: Likely calculus of kidney and other (Muscle strain, lumbar radiculopathy, lumbar spondylosis, UTI) Lab Data Attestation: I reviewed the patient's lab results. 01/13/25 09:14 01/13/25 09:14 Labs: Lab Results 01/13/25 01/13/25 Range/Units 09:14 09:38 WBC 11.1 H (4.5-10.0) K/mm3 RBC 5.07 (4.6-6.20) M/mm3 Hgb 15.9 (14.0-18.0) g/dL Hct 46.7 (42.0-52.0) % MCV 92.1 (80-100) fl MCH 31.4 (26-34) pg MCHC 34.0 (32-36) g/dl RDW 12.7 (11.5-14.5) % Plt Count 329 (150-375) k/mm3 MPV 9.6 (7.4-10.4) fl Immature Gran % (Auto) 0.6 H (0-0.5) % Neut % (Auto) 73.8 H (45.5-73.1) % Lymph % (Auto) 18.6 (18.3-44.2) % [place] % (Auto) 5.2 (2.6-8.5) % Eos % (Auto) 1.3 (0-4.4) % Baso % (Auto) 0.5 (0.2-1.2) % Lymph # (Auto) 2.06 (0.9-3.2) K/mm3 [place] # (Auto) 0.6 (0.1-0.6) K/mm3 Eos # (Auto) 0.1 (0-0.3) K/mm3 Baso # (Auto) 0.1 (0.0-0.1) K/mm3 Abs Immat Gran (auto) 0.07 H (0.00-0.031) K/mm3 Absolute Neuts (auto) 8.2 H (1.3-6.7) K/mm3 Absolute Nucleated RBC 0.000 (0.0-0.012) K/mm3 Nucleated RBC % 0.0 (0.0-0.2) % Sodium 138 (137-145) mmol/L Potassium 4.2 (3.4-5.0) mmol/L Chloride 107 (98-107) mmol/L Carbon Dioxide 23 (22-30) mmol/L Anion Gap 8 (4-12) mmol/L BUN 12 (9-20) mg/dL Creatinine 0.93 (0.7-1.3) mg/dL Estim Creat Clear Calc 137 ml/min Estimated GFR > 60 (59 - ) Glucose 109 (65-110) mg/dL Calcium 9.4 (8.4-10.2) mg/dL Total Bilirubin 0.4 (0.2-1.3) mg/dL AST 49 (17-59) U/L ALT 44 (6-50) U/L Alkaline Phosphatase 94 (38-126) U/L Total Protein 7.9 (6.3-8.2) g/dL Albumin 4.5 (3.5-5.1) g/dL Lipase 80 (23-300) U/L Urine Color Yellow (Yellow) Urine Appearance Clear (Clear) Urine pH 5.5 (5.0-9.0) Ur Specific [place] 1.022 (1.001-1.035) Urine Protein Negative (Negative) mg/dL Urine Glucose (UA) Negative (Negative) mg/dL Urine Ketones Trace H (Negative) mg/dL Ur Blood (Man) Negative (Negative) Urine Nitrate Negative (Negative) Urine Bilirubin Negative (Negative) Urine Urobilinogen 0.2 (<2.0) mg/dL Leukocyte Esterase Rfl Negative (Negative) JOHNATHAN/UL Imaging Data Radiologist's impression: ITS Impressions Abdomen/Pelvis CT 01/13/25 09:47 IMPRESSION: 1. There are a few less than 5 mm nonobstructing left renal stones. No hydronephrosis. Critical Care Time Critical Care Time Critical Care Time: No Discharge Plan Discharge Clinical Impression: Low back pain Qualifiers: Chronicity: acute Back pain laterality: left Sciatica presence: without sciatica Qualified Code(s): M54.50 - Low back pain, unspecified Patient Disposition: Home Condition: Stable Instructions: Back Pain (ED) Additional Instructions: Return to the ER if you experience fever, weakness, numbness, bowel/bladder incontinence, pain or burning with urination, blood in the urine, or any other symptoms that are concerning to you Rest, use ice/heat, take anti-inflammatories (Aleve, Ibuprofen, Naproxen, etc) or Tylenol as needed for pain as well as muscle relaxer (Flexeril) as needed for pain. Muscle relaxers can make you drowsy, do not drive if you take this Follow up with your primary care doctor Patient Language: Cymro Prescriptions: New cyclobenzaprine 10 mg tablet 10 mg PO TID PRN (Reason: muscle spasm) Qty: 10 0RF Follow-up/Referrals: Dima,Nicholas Gracia MD [Primary Care Provider] -
[2025-01-13 09:45] LABS: Alanine Aminotransferase 44 U/L (6-50); Albumin Level 4.5 g/dL (3.5-5.1); Alkaline Phosphatase 94 U/L (38-126); Anion Gap 8 mmol/L (4-12); Aspartate Amino Transferase 49 U/L (17-59); Bilirubin,Total 0.4 mg/dL (0.2-1.3); Blood Urea Nitrogen 12 mg/dL (9-20); Calcium 9.4 mg/dL (8.4-10.2); Carbon Dioxide 23 mmol/L (22-30); Chloride 107 mmol/L (98-107); Estimated CRCL calculation 137 ml/min; Estimated Glomerular Filt Rate > 60; Glucose 109 mg/dL (65-110); Lipase 80 U/L (23-300); Potassium 4.2 mmol/L (3.4-5.0); Sodium 138 mmol/L (137-145); Total Protein 7.9 g/dL (6.3-8.2)
[2025-01-13 09:46] VITALS: O2SAT 97
[2025-01-13 09:54] LABS: Add Urine Microscopic? NO; Appearance Urine Clear (Clear); Glucose Urine UA Negative (Negative); Leukocyte Esterase Ur Negative LEU/UL (Negative); Nitrate Urine Negative (Negative); Specific Grav Ur 1.022 (1.001-1.035)
[2025-01-13 10:00] VITALS: O2SAT 99
[2025-01-13 10:15] VITALS: O2SAT 95
[2025-01-13 10:30] VITALS: BP 150/92; PULSE 76; RESP 16; O2SAT 98
== END 2025-01-13 10:42 | disposition home or self-care (01) ==
PROVIDERS: Emergency Provider Physician Assistant; PCP Specialist
DX: M54.50 Low back pain, unspecified (principal); F17.210 Nicotine dependence, cigarettes, uncomplicated
CPT/HCPCS: 36415; 74176; 80053; 81003; 83690; 85025; 99284

== ENCOUNTER 2025-03-06 15:36 | Emergency (ER) | payer BC, SELFPAY ==
[2025-03-06 15:46] VITALS: BP 108/68; PULSE 70; RESP 16; TEMP 37.5; O2SAT 96
--- NOTE | 2025-03-06 15:46 | ED_ITS ---
HPI - Skin/Abscess/Foreign Bdy General Chief complaint: Skin/Abscess/Foreign Body Stated complaint: Bump/Skin Irritation Time Seen by Provider: 03/06/25 15:46 Source: patient, RN notes reviewed and old records reviewed Mode of arrival: ambulatory Limitations: no limitations History of Present Illness HPI narrative: 39-year-old male presents to the [facility] with a bump to the left lower abdomen that his getting bigger and more painful over the last 2 weeks. Has been applying braided, Band-Aids. Has become more painful. Related Data Allergies Allergy/AdvReac Type Severity Reaction Status Date / Time clindamycin Allergy Intermediate Hives Verified 03/06/25 15:57 venom-honey bee Allergy Unknown Unknown Verified 03/06/25 15:57 Review of Systems 2 Review of Systems: All systems reviewed & are unremarkable except as noted in HPI and below Constitutional: Constitutional: Reports no additional constitutional complaints ENT: Reports system reviewed and no additional complaints, except as documented Cardiovascular: Cardiovascular: Reports no additional cardiovascular complaints, Denies chest pain and Denies dyspnea Respiratory: Respiratory: Reports no additional respiratory complaints, Denies chest congestion, Denies cough and Denies dyspnea Musculoskeletal: Musculoskeletal: Reports no additional musculoskeletal complaints Integumentary/Breasts: Skin/Breast: Reports as per HPI PMFSH Past Medical History Medical History Von Willebrand disease Frequent nosebleeds Surgical History Surgical History Status post balloon atrial septotomy Family History Family History Other Heart disease High cholesterol Hypertension Social History Social History Smoking packs per day: 1 Smoking cigarettes per day: 20.0 Smoking status: Current every day smoker Tobacco type: cigarettes Alcohol intake: current Alcohol use details: Fluctuating amounts of alcohol depending on circumstances Gender identity (if verbalized by the patient): Male Comments At the time of my signature, I reviewed and agree with the nursing past medical, surgical, social, and family history. There is no relevant family history pertinent to the patient complaint. Exam 2 Const: General: cooperative, healthy appearing, comfortable, no acute distress, well developed, alert and well nourished Nutritional Appearance: w ell nourished and obese Orientation/consciousness: patient oriented x3 L imitations: no limitations HENMT: Head: normal to inspection Eyes: General: appearance normal, both eyes and all related structures A lignment and Position: alignment normal Neck: Neck: normal visual inspection, full ROM, no lymphadenopathy and no meningeal signs Chest: Chest palpation & inspection: normal inspection of the chest Resp: Effort & Inspection: normal respiratory effort and able to speak in complete sentences Cardio: Rate: regular rate Skin: General skin exam: normal color and no rashes or lesions noted Full body images: 1. 2 x 1 raised fluctuant area, redness extended 4 x 3 cm. Neuro: General: patient oriented x3, gait normal, moves all extremities and no meningeal signs Cognition (Neuro): normal cognition Speech: normal speech Gait exam (Neuro): Normal gait present Extrem: General: normal to inspection, full ROM, capillary refill normal and normal gait Psych: Appearance: grossly normal and well kempt Mental Status: mental status grossly normal Speech and movement: Normal speech and movement present and Clear speech present Affect: normal affect Attitude: cooperative Course Course Level of Care: Express Care Visit Vital Signs Vital signs: Vital Signs Temperature 99.5 F 03/06/25 15:46 Pulse Rate 70 03/06/25 15:46 Respiratory Rate 16 03/06/25 15:46 Blood Pressure 108/68 03/06/25 15:46 Pulse Oximetry 96 03/06/25 15:46 Oxygen Delivery Room Air 03/06/25 15:46 Temperature 99.5 F 03/06/25 15:46 Pulse Rate 70 03/06/25 15:46 Respiratory Rate 16 03/06/25 15:46 Blood Pressure 108/68 03/06/25 15:46 Pulse Oximetry 96 03/06/25 15:46 Oxygen Delivery Room Air 03/06/25 15:46 Reviewed Procedures Abscess I/D abdomen: Date of Incision: 03/06/25 Time of Incision: 16:00 Side (if applicable): left Local Anesthetic: lidocaine 1% Amount of anesthesia used (mL): 4 Technique: incised with #11 blade Amount of fluid expressed (mL): 5 Irrigation: Yes Packing used?: none I&D Results: Pus Abcess I&D Additional Comments: Procedure explained, verbal consent obtained. Area cleaned with Betadine. Multiple injections made with lidocaine, a anesthesia achieved. Eleven blade used open abscess collected purulent drainage with culture. Patient tolerated procedure well. Bandage placed. Stressed the importance of following up with primary care provider and possibly a surgeon MDM - Skin/Abscess/Foreign Bdy MDM Narrative Medical decision making narrative: Patient sitting comfortably in exam. Patient is nontoxic, vitals stable. Patient presents with an abscess to the left lower abdomen, area cleaned, opened, drained, patient placed on antibiotics, culture sent. Patient appropriate for outpatient treatment with close follow-up Discharge instructions reviewed with patient, as well as provided in writing per nursing staff. The instructions also include specific and strict return/GO TO THE ER as well as f/u information. All questions have been answered, and the patient deny any further questions with discharge and discharge plan. Some parts of this dictation were generated by voice recognition software and may contain typographical and/or grammatical inaccuracies. Differential Diagnosis Differential diagnosis: Likely abscess of skin or subcutaneous tissue, cellulitis and contact dermatitis Critical Care Time Critical Care Time Critical Care Time: No Discharge Plan Discharge Clinical Impression: Abscess Patient Disposition: Home Condition: Stable Instructions: Abscess (ED) Additional Instructions: DO NOT pick at the area. This will only make the area worse and drive infection deeper. Shower and wash with soapy water. Keep area clean and dry. Take all the antibiotics as prescribed. Make sure to keep a dressing in place especially while it is draining Follow up with PCP in 7-10 days If your symptoms get worse you develop fevers, severe pain, increased redness please go to the nearest emergency room Patient Language: Polish Prescriptions: New sulfamethoxazole-trimethoprim [Bactrim DS] 800-160 mg tablet 1 tablet PO Q12H Qty: 14 0RF Follow-up/Referrals: Dima,Nicholas Gracia MD [Primary Care Provider, Unknown] Time of Disposition: 16:09
== END 2025-03-06 16:15 | disposition home or self-care (01) ==
PROVIDERS: Emergency Provider Nurse Practitioner; PCP Specialist
DX: L02.211 Cutaneous abscess of abdominal wall (principal); F17.210 Nicotine dependence, cigarettes, uncomplicated; D68.00 Von Willebrand disease, unspecified
CPT/HCPCS: 10060; 99213; G0463